=== PATIENT | male | born 1965 | race Caucasian/White ===

== ENCOUNTER 2018-11-08 20:50 | Emergency (ER) | payer OTHER ==
[~2018-11-08] VITALS: Wt 74.8 kg
--- NOTE | 2018-11-08 22:19 | ERD ---
ER Documentation Chief Complaint Chief Complaint SWOLLEN WOUNDS ON LEGS HPI The patient is a 53-year-old male, presenting to the ER because of acute right lower extremity wound for the last 2 days from hitting the recliner. He also h as a chronic wound on the left lower extremity since August 2018. Denies fever, chills, complains of intermittent cough with dyspnea for the last 3 days, denies chest pain, abdominal pain, vomiting, dysuria, diarrhea. He does smoke, and drinks socially, denies any illicit drug Past medical history: None Past surgical history: Ventral herniorrhaphy ROS All systems reviewed and are negative except as per history of present illness. Medications Home Meds Active Scripts Bacitracin* (Bacitracin Oint (UD)*) 1 Applic Oint, 1 APPLIC TOP TID for 10 Days, PKT APPLY TO Prov:MORRIS LEWIS MD 11/09/18 Clindamycin Hcl* (Clindamycin Hcl*) 300 Mg Capsule, 300 MG PO QID for 10 Days, CAP Prov:MORRIS LEWIS MD 11/09/18 Physical Exam Vitals Vital Signs Date Temp Pulse Resp B/P (MAP) Pulse Ox O2 O2 Flow FiO2 Time Delivery Rate 11/08/18 98.3 91 18 136/96 100 Room Air 22:27 (109) 11/08/18 98.3 91 18 142/96 100 21:13 (111) Physical Exam Const: No acute distress. Head: Atraumatic. Eyes: Normal Conjunctiva. ENT: Normal External Ears, Nose and Mouth. Neck: Full range of motion. No meningismus. Resp: Clear to auscultation bilaterally. Cardio: Regular rate and rhythm. Abd: Soft, non distended, normal bowel sounds, non tender. Skin: No petechiae or rashes. Back: No midline or flank tenderness. Ext: Left lower extremity wound with scab, multiple wounds with scabs on the right lower extremity with surrounding erythema with vague calf tenderness Neur: Awake and alert. No focal deficit Psych: Normal Mood and Affect. Result Diagram: 11/08/18220911/08/182209 Results 24 hrs Laboratory Tests Test 11/08/18 22:10 White Blood Count 7.3 10^3/ul Red Blood Count 4.20 10^6/ul Hemoglobin 12.4 g/dl Hematocrit 38.8 % Mean Corpuscular Volume 92.4 fl Mean Corpuscular Hemoglobin 29.5 pg Mean Corpuscular Hemoglobin Concent 32.0 g/dl Red Cell Distribution Width 14.3 % Platelet Count 272 10^3/UL Mean Platelet Volume 9.1 fl Immature Granulocytes % 0.400 % Neutrophils % 66.9 % Lymphocytes % 20.8 % Monocytes % 8.8 % Eosinophils % 2.6 % Basophils % 0.5 % Nucleated Red Blood Cells % 0.0 /100WBC Immature Granulocytes # 0.030 10^3/ul Neutrophils # 4.9 10^3/ul Lymphocytes # 1.5 10^3/ul Monocytes # 0.6 10^3/ul Eosinophils # 0.2 10^3/ul Basophils # 0.0 10^3/ul Nucleated Red Blood Cells # 0.0 10^3/ul Prothrombin Time 12.8 Sec Prothrombin Time Ratio 1.0 INR International Normalized Ratio 0.95 Activated Partial Thromboplast Time 27.5 Sec D-Dimer 411.40 ng/ml D-Dimer Comment Sodium Level 140 mmol/L Potassium Level 4.4 mmol/L Chloride Level 102 mmol/L Carbon Dioxide Level 29 mmol/L Anion Gap 9 Blood Urea Nitrogen 14 mg/dl Creatinine 0.69 mg/dl Est Glomerular Filtrat Rate mL/min > 60 mL/min Glucose Level 96 mg/dl Calcium Level 9.4 mg/dl Troponin I < 0.012 ng/ml B-Type Natriuretic Peptide 70 PG/ML Current Medications Medications Dose Sig/Mirna Start Time Status Last (Trade) Ordered Route PRN Stop Time Admin Dose Reason Admin Clindamycin 300 mg ONCE ONCE 11/09/18 HCl PO 00:30 11/09/18 (Cleocin) 00:31 Procedures/[place] [id number] Radiology Main Line: [phone] DIAGNOSTIC IMAGING REPORT Patient: MORRIS KENNEDY : 1965 Age: 53 Sex: M MR #: [id number] DOS: 11/08/18 2236 Ordering MD: MORRIS LEWIS MD Location: E/R Room/Bed: PROCEDURE: Chest. CLINICAL INDICATION: Shortness of breath. TECHNIQUE: Single frontal view of the chest was obtained. COMPARISON: None. FINDINGS: The cardiac silhouette is within normal limits. The aortic arch is unremarkable. There is no focal consolidation, vascular congestion or pleural effusion. There is no pneumothorax. IMPRESSION: No evidence for active cardiopulmonary disease. .Freedom Gil MD, MD Date Time Electronically viewed and signed by .Freedom Gil MD, MD on 11/09/2018 00:01 .T/ CC: MORRIS LEWIS MD [id number] [place] [id number] Radiology Main Line: [phone] DIAGNOSTIC IMAGING REPORT Patient: MORRIS KENNEDY : 1965 Age: 53 Sex: M MR #: [id number] DOS: 11/08/18 2236 Ordering MD: MORRIS LEWIS MD Location: E/R Room/Bed: PROCEDURE: Ultrasound examination of bilateral lower extremities veins with Doppler. CLINICAL INDICATION: Leg pain and swelling, shortness of breath. TECHNIQUE: Multiple sonographic images of bilateral lower extremity venous systems were performed with martinez scale and color Doppler. COMPARISON: None. FINDINGS: Bilateral common femoral, superficial femoral and popliteal veins demonstrate normal color flow, waveforms, compression and response to augmentation. There is no evidence of deep venous thrombosis. IMPRESSION: No evidence of deep venous thrombosis within bilateral lower extremities. .Freedom Gil MD, MD Date Time Electronically viewed and signed by .Freedom Gil MD, MD on 11/08/2018 23:36 .T/ CC: MORRIS LEWIS MD [phone] EKG: Read by emergency physician Rate/Rhythm: Normal Sinus Rhythm 75 beats/min QRS, ST, T-waves: No ST elevation, no T inversion Impression: Normal EKG MEDICAL MAKING DECISION: The patient is a 53-year-old male, presenting with acute right lower extremity cellulitis, was treated with clindamycin 300 mg p.o. for acute cellulitis, is stable outpatient follow-up The differential diagnoses considered include but are not limited to cellulitis, abscess, DVT Departure Diagnosis: Primary Impression: Cellulitis Additional Impression: Anemia Condition: Good Comments He was discharged with clindamycin and bacitracin The patient's blood pressure was elevated (>120/80) but appears stable without evidence of hypertension emergency or urgency. The patient was counseled about the risks of hypertension and urged to pursue outpatient monitoring and therapy within a week with their primary care physician. I discussed the findings with the patient. I advised the patient to follow-up with the primary physician in about 2-3 days, sooner if needed and return if any concern. Disclaimer: Inadvertent spelling and grammatical errors are likely due to EHR/dictation software use and do not reflect on the overall quality of patient care. Also, please note that the electronic time recorded on this note does not necessarily reflect the actual time of the patient encounter. MORRIS LEWIS MD Nov 08, 2018 22:19
[2018-11-09] MEDS ORDERED: CLIN300C10 PO (00:08)
[2018-11-09] MEDS ORDERED: BACITUD TOP (00:08)
[2018-11-09] MEDS ORDERED: CLINDAMYCIN 300 MG CAP PO ONE (00:30)
[2018-11-09 00:43] VITALS: BP 139/97; PULSE 87; RESP 13
== END 2018-11-09 00:45 | disposition home or self-care (01) ==
LOC: E/R 20:50
DX: L03.116 Cellulitis of left lower limb (principal); D64.9 Anemia, unspecified; R06.02 Shortness of breath
CPT/HCPCS: 36415; 71045; 80048; 83880; 84484; 85025; 85378; 85610; 85730; 93005; 93970; Z7502; Z7610